=== PATIENT | male | born 1945 | race Caucasian/White ===

== ENCOUNTER 2021-04-05 11:19 | Outpatient (CLI) | payer MEDICARE | END 2021-04-05 11:20 | disposition home or self-care (01) | LOC: NAV RAD 11:19 | PROVIDERS: ATTEND Nurse Practitioner Family | DX: M47.816 Spondylosis without myelopathy or radiculopathy, lumbar region (principal); M43.16 Spondylolisthesis, lumbar region | CPT/HCPCS: 72120 ==